=== PATIENT | female | born 1965 | race Caucasian/White ===

== ENCOUNTER 2019-09-28 12:49 | Day surgery (SDC) | payer OTHER ==
[~2019-09-28] VITALS: Ht 165.1 cm; Wt 87.7 kg
[~2019-09-28 12:49] MED LIST: ALBU8.5H8 INH; ALPR0.5T7 PO; ALPR1TAB2 PO; AZIT250T PO; CODEINE PO; ESZO3TAB28 PO; FIORICET PO; FLUT1DIS IH; FLUT1DIS5 IH; IPRA4AER INH; METF500T17 PO; MULT1TAB60 PO; NAPR-856 PO; OXYC10TA6 PO; PANT40TA3 PO; QUET200T4 PO; THEO400T2 PO; VENL150C PO
[2019-09-28 13:27] VITALS: BP 146/92
[2019-09-28] MEDS ORDERED: ESZO3TAB28 PO (13:27)
[2019-09-28] MEDS ORDERED: LACTATED RINGERS 1,000 ML IV SCH (13:36)
[2019-09-28] MEDS ORDERED: LIDOCAINE-MPF 1%, 2ML INFIL ONE (14:00)
[2019-09-28] MEDS ORDERED: MIDAZOLAM 1 MG/ML, 5ML ONE (14:02)
[2019-09-28] MEDS ORDERED: FENTANYL PF 100 MCG/2ML ONE (14:03)
[2019-09-28] MEDS ORDERED: KETAMINE 10 MG/ML, 20ML ONE (14:05)
[2019-09-28] MEDS ORDERED: PROMETHAZINE 25 MG/ML, 1ML IV PRN (14:30)
[2019-09-28] MEDS ORDERED: MEPERIDINE/PF 25MG/ML,1ML IVPush PRN (14:30)
[2019-09-28] MEDS ORDERED: PROPOFOL 10 MG/ML, 50ML ONE (14:30)
[2019-09-28] MEDS ORDERED: FENTANYL PF 100 MCG/2ML IV PRN (14:30)
[2019-09-28] MEDS ORDERED: HYDROmorphone 2 MG/ML, 1ML IVPush PRN (14:30)
[2019-09-28] MEDS ORDERED: ALBUTEROL/IPRATROPIUM 2.5MG/0.5MG, 3 ML NPPB PRN (14:30)
[2019-09-28] MEDS ORDERED: OXYcodone 5 MG/5 ML ORAL.SOL UDC PO PRN (14:30)
[2019-09-28] MEDS ORDERED: ACETAMINOPHEN 325 MG TABLET PO PRN (14:30)
[2019-09-28] MEDS ORDERED: hydrALAzine 20 MG/ML, 1ML IV PRN (14:30)
== END 2019-09-28 16:25 | disposition home or self-care (01) ==
LOC: OUT 12:49
PROVIDERS: ATTEND Internal Medicine Gastroenterology
DX: R13.10 Dysphagia, unspecified (principal); K22.2 Esophageal obstruction; K22.5 Diverticulum of esophagus, acquired; K44.9 Diaphragmatic hernia without obstruction or gangrene; K21.9 Gastro-esophageal reflux disease without esophagitis; E11.9 Type 2 diabetes mellitus without complications; J44.9 Chronic obstructive pulmonary disease, unspecified; G47.33 Obstructive sleep apnea (adult) (pediatric); F32.9 Major depressive disorder, single episode, unspecified; Z79.84 Long term (current) use of oral hypoglycemic drugs; Z79.899 Other long term (current) drug therapy; Z87.891 Personal history of nicotine dependence; Z86.010 Personal history of colon polyps; Z90.49 Acquired absence of other specified parts of digestive tract; Z96.651 Presence of right artificial knee joint; Z98.890 Other specified postprocedural states
CPT/HCPCS: 43237; 43239; 43249; 82962; 88305; C1725; J2250; J2704; J3010